=== PATIENT | male | born 1940 | race Caucasian/White ===

== ENCOUNTER 2021-07-15 14:04 | Inpatient (IN) | payer MEDICARE, MEDICAID ==
[~2021-07-15] VITALS: Ht 175.3 cm; Wt 77.1 kg
[2021-07-15 16:21] LABS: HEMOGLOBIN 14.6 gm/dl (14.0-17.5); RED BLOOD COUNT 5.13 M/UL (4.20-5.50); WHITE BLOOD COUNT 7.1 K/UL (4.5-11.0)
[2021-07-15 16:39] LABS: BUN/CREATININE RATIO 22 (0-10)
[2021-07-16 03:22] LABS: HEMOGLOBIN 13.4 gm/dl (14.0-17.5); RED BLOOD COUNT 4.75 M/UL (4.20-5.50); WHITE BLOOD COUNT 9.9 K/UL (4.5-11.0)
[2021-07-16 03:38] LABS: BUN/CREATININE RATIO 22 (0-10)
[2021-07-17 06:04] LABS: HEMOGLOBIN 12.6 gm/dl (14.0-17.5); RED BLOOD COUNT 4.56 M/UL (4.20-5.50)
[2021-07-17 06:36] LABS: BUN/CREATININE RATIO 25 (0-10)
[2021-07-17] MEDS ORDERED: MEDROL DOSEPAK 24 MG PO (09:31)
[2021-07-17] MEDS ORDERED: AZITHROMYCIN500 MG PO (09:31)
[2021-07-17] MEDS ORDERED: OMNICEF 300 MG300 MG PO (09:31)
[2021-07-17] MEDS ORDERED: PROVENTIL HFA6.7 GM INH (09:31)
--- NOTE | 2021-07-17 10:56 | NUR ---
PATIENT'S OXYGEN DROPPED TO 85% ON RA DURING WEANING PROCESS FROM O2 VIA NC. NOTIFIED PROVIDER. DISCHARGE CANCELLED.
[2021-07-18 07:17] LABS: BUN/CREATININE RATIO 25 (0-10)
[2021-07-19 07:51] LABS: BUN/CREATININE RATIO 22 (0-10)
[2021-07-20 05:56] LABS: BUN/CREATININE RATIO 21 (0-10)
== END 2021-07-20 13:10 | disposition home or self-care (01) | DRG 193 ==
LOC: ER1 14:04 → CDU 23:23 → MED SURG 4 07-16 20:49
PROVIDERS: Internal Medicine; Physician Assistant; ADMIT Internal Medicine
DX: J18.9 Pneumonia, unspecified organism (principal); J96.01 Acute respiratory failure with hypoxia; J44.0 Chronic obstructive pulmonary disease with (acute) lower respiratory infection; J44.1 Chronic obstructive pulmonary disease with (acute) exacerbation; R73.9 Hyperglycemia, unspecified; R00.0 Tachycardia, unspecified; C44.311 Basal cell carcinoma of skin of nose; I10 Essential (primary) hypertension; Z20.822 Contact with and (suspected) exposure to COVID-19; Z87.891 Personal history of nicotine dependence; Z79.899 Other long term (current) drug therapy
CPT/HCPCS: 36415; 36600; 71045; 80048; 80053; 82550; 82553; 82803; 83036; 83735; 83874; 84484; 85025; 85027; 87040; 93005; 94640; 94664; 94760; 96374; 96375; 99285; G0378; J0456; J0696; J1650; J2543; J2920; J2930; J3475; J7030; U0002

== ENCOUNTER → 2021-08-01 | Outpatient (CLI) | payer MEDICARE ==
[~2021-08-01] MED LIST: AZITHROMYCIN500 MG PO; MEDROL DOSEPAK 24 MG PO; OMNICEF 300 MG300 MG PO; PROVENTIL HFA6.7 GM INH
== END ==
LOC: KOH-I 10:10
DX: R05.9 Cough, unspecified (principal); R06.02 Shortness of breath; R06.2 Wheezing; R91.8 Other nonspecific abnormal finding of lung field
CPT/HCPCS: 71046

== ENCOUNTER → 2021-08-13 | Outpatient (CLI) | payer MEDICARE | LOC: HEART 5 14:24 | DX: J96.90 Respiratory failure, unspecified, unspecified whether with hypoxia or hypercapnia (principal) | CPT/HCPCS: 94060; 94729 ==